=== PATIENT | male | born 1935 | race Two or more races ===

== ENCOUNTER → 2016-12-12 | Day surgery (SDC) | payer MEDICARE ==
[~2016-12-12] MED LIST: GLYCOPYRROLATE 1 MG/5 ML VIAL. ONE; IV RINGERS SOLUTION,LACTATED 1,000 ML IV ONE; LABETALOL 100 MG/20 ML VIAL. IV ONE; LIDOCAINE 2% PF Vial for OR 5 ML VIAL. ONE; PROPOFOL 40 ML IV ONE; hydrALAZINE 20 MG/ML VIAL. ONE
--- NOTE | 2016-12-15 14:21 | PATHOLOGY ---
PATHOLOGY REPORT * * * * * * * * FINAL DIAGNOSIS: A. Colon biopsy, cecal mass: - Villous adenoma. B. Colorectal biopsy, rectal polyp: - Hyperplastic polyp. COMMENT: Sections of the cecal mass biopsy reveal multiple fragments of villous adenoma. There is no evidence of malignancy this biopsy. If there is a strong clinical suspicion of malignancy, additional biopsies may be helpful. Sections of the rectal biopsy reveal a hyperplastic polyp. There are no adenomatous changes or evidence of malignancy. (JPM:mml; 12/15/2016) REPORT ELECTRONICALLY SIGNED BY: Jonathan Cameron M.D. DATE/TIME: 12/15/2016 14:20 * * * * * * * * GROSS PATHOLOGY: A. Received in formalin labeled "Jorge King, mass at cecum," are 7 segments of vasquez soft tissue measuring 1.8 x 1.5 x 0.2 cm in aggregate dimensions and ranging from 0.2 to 0.8 cm in maximum dimension. The specimen is submitted entirely in cassette A1. B. Received in formalin labeled "Jorge King, rectal polyp," is a segment of vasquez soft tissue measuring 0.8 cm in maximum dimension. The specimen is submitted entirely in cassette B1. (TSD; 12/12/2016) INITIAL CPT CODE(S): A; 07480 B; 70465 Professional services performed by [facility] [place] [address] Technical services performed by [facility] at [address] [place] [address] [address] [address]. SPECIMEN(S) RECEIVED: A.Mass at cecum B.Rectal polyp CLINICAL HISTORY: Abnormal findings on diagnostic imaging of abdomen PATIENT: JORGE KING /AGE: 11 1935 (Age: 80) PATIENT #: [id number] ALT CASE #: SPECIMEN COLLECTION DATE: 12/12/2016 SPECIMEN RECEIVED DATE: 12/12/2016 [facility] [place] [address] - PHONE: [phone] * * * END OF REPORT * * *
== END | disposition home or self-care (01) ==
LOC: SURG 07:52
PROVIDERS: ATTEND Surgery
DX: C18.0 Malignant neoplasm of cecum (principal); K57.30 Diverticulosis of large intestine without perforation or abscess without bleeding; I10 Essential (primary) hypertension; E11.9 Type 2 diabetes mellitus without complications; Z98.890 Other specified postprocedural states; Z87.891 Personal history of nicotine dependence
CPT/HCPCS: 45380; 82947; 88305; J0360; J2704; J3490; J7120; J2001

== ENCOUNTER 2017-02-05 11:10 | Inpatient (IN) | payer MEDICARE ==
[~2017-02-05] VITALS: Ht 175.3 cm; Wt 66.4 kg
[2017-02-05] VITALS (7 sets, daily range): BP systolic 123–155; BP diastolic 56–72
--- NOTE | 2017-02-05 11:47 | EKG ---
[address] [address] Test Date: 2017-02-05 Test Time: 11:45:08 Pat Name: ALIDA KING Department: Room: Gender: M [employer] Associate: ROSY : 1935 Requested By: HENRIQUE ORNELAS Order Number: [id number] Reading MD: Measurements Intervals Cecilia Rate: 89 P: 0 MO: 152 QRS: 27 QRSD: 106 T: 51 QT: 372 QTc: 459 Interpretive Statements SINUS RHYTHM NO SPECIFIC ECG ABNORMALITIES RI6.01 Unconfirmed report No previous ECG available for comparison
--- NOTE | 2017-02-05 11:53 | RAD ---
Portable chest, 02/05/2017: History: Shortness of breath The heart size is normal. There is calcific plaquing of the aorta. The pulmonary vascularity is normal. There are mild patchy bilateral pulmonary infiltrates, most prominent in the lung bases. There is a suggestion of underlying cavitation within the left basilar infiltrate. No pleural fluid is seen. IMPRESSION: Patchy bilateral pulmonary infiltrates suggesting pneumonia. Possible underlying cavitation in the left base could be due to an abscess or septic emboli.
[2017-02-05 11:58] LABS: BASO % 0 % (0-3); EOS % 0 % (0-3); HEMATOCRIT 32.8 % (39.0-53.0); LYMPH # 0.2 x10^3/uL (1.0-4.8); LYMPH % 2 % (24-48); MEAN CORPUSCULAR HEMOGLOBIN 30 pg (25-35); MEAN CORPUSCULAR HGB CONC 34 g/dL (31-37); MEAN CORPUSCULAR VOLUME 88 fL (79-100); MONO # 0.4 x10^3/uL (0.0-1.1); MONO % 4 % (0-9); NEUT # 10.3 x10^3uL (1.8-7.7); NEUT % 94 % (31-73); PLATELET COUNT 303 x10^3/uL (140-400); RED BLOOD COUNT 3.74 x10^6/uL (4.30-5.70); RED CELL DISTRIBUTION WIDTH 14.6 % (11.5-14.5); WHITE BLOOD COUNT 10.9 x10^3/uL (4.0-11.0)
[2017-02-05] MEDS ORDERED: IV NORMAL SALINE 50ML 50 ML ONE (12:06)
[2017-02-05] MEDS ORDERED: cefTRIAXone SODIUM 1 GM VIAL IV ONE (12:06)
[2017-02-05 12:12] LABS: BGAS PH 7.46 (7.35-7.46)
[2017-02-05] MEDS ORDERED: cefTRIAXone IV Push 1 GM VIAL. IVP SCH (12:15)
[2017-02-05] MEDS ORDERED: cefTRIAXone IV Push 1 GM VIAL. IVP ONE (12:15)
[2017-02-05 12:16] LABS: CALCIUM 9.3 mg/dL (8.5-10.1); CREATININE 1.9 mg/dL (0.7-1.3); GFR 34.1; POTASSIUM 3.6 mmol/L (3.5-5.1)
--- NOTE | 2017-02-05 12:56 | PHYS DOC ---
Past History Past Medical History: A-Fib, Diabetes, Hypertension Past Surgical History: Other Alcohol Use: None Drug Use: None Adult General Chief Complaint Chief Complaint: SHORTNESS OF BREATH HPI HPI Patient is a 81 year old M who presents with cough and shortness of breath over the past 2-3 days with gradual worsening. He denies fevers but feels that he has had chills. He feels that his symptoms are worse with activity and improved with rest. He has no other associated symptoms at this time. He has no other exacerbating or alleviating factors Review of Systems Review of Systems Constitutional: Denies fever Eyes: Denies change in visual acuity, redness, or eye pain [] HENT: nasal congestion Respiratory: Negative except for history of present illness Cardiovascular: No additional information not addressed in HPI [] GI: Denies abdominal pain, nausea, vomiting, bloody stools or diarrhea [] : Denies dysuria or hematuria [] Musculoskeletal: Denies back pain or joint pain [] Integument: Denies rash or skin lesions [] Neurologic: Denies headache, focal weakness or sensory changes [] Endocrine: Denies polyuria or polydipsia [] All other systems were reviewed and found to be within normal limits, except as documented in this note. Family History Family History No pertinent family medical history reported Current Medications Current Medications Current Medications Medications (Trade) Dose Ordered Sig/Roney Start Time Stop Time Status Last Admin Dose Admin Ceftriaxone Sodium 1 gm/ Sodium Chloride 50 ml @ 100 mls/hr 1X ONCE 02/05/17 12:00 02/05/17 12:08 DC Ceftriaxone Sodium (Rocephin) 1 gm 1X ONCE 02/05/17 12:15 02/05/17 12:16 DC 02/05/17 12:22 1 GM Sodium Chloride 50 ml @ As Directed STK-MED ONCE 02/05/17 12:06 02/05/17 12:07 DC Allergies Allergies Allergies Coded Allergies Type Severity Reaction Last Updated Verified lisinopril Allergy Intermediate 02/05/17 Yes Physical Exam Physical Exam Constitutional: Well developed, well nourished, mild increased work of breathing , ill-appearing HENT: Normocephalic, atraumatic, mild nasal congestion bilaterally Eyes: EOMI, conjunctiva normal, no discharge. [] Neck: Normal range of motion, no tenderness, supple, no stridor. [] Cardiovascular:Heart rate regular rhythm, Lungs & Thorax: Moderate diminished breath sounds bilaterally with moderate rhonchi bilaterally, mild increased work of breathing, 2 L nasal cannula for supplemental oxygen Abdomen: Bowel sounds normal, soft, no tenderness, no masses, no pulsatile masses. [] Skin: Warm, dry, no erythema, no rash. [] Back: No tenderness, no CVA tenderness. [] Extremities: No tenderness, no cyanosis, no clubbing, ROM intact, no edema. [] Neurologic: Alert and oriented X 3, normal motor function, normal sensory function, no focal deficits noted. [] Psychologic: Affect normal, judgement normal, mood normal. [] Current Patient Data Vital Signs Vital Signs Date Time Temp Pulse Resp B/P (MAP) Pulse Ox O2 Delivery O2 Flow Rate FiO2 02/05/17 11:10 98.3 86 24 90 Nasal Cannula 2.0 Lab Results Laboratory Tests Test 02/05/17 11:21 02/05/17 11:40 Blood pH 7.46 (7.35-7.46) Blood Gas PCO2 29 mmHg (35-46) L Blood Gas PO2 52 mmHg (71-100) L Blood Gas HCO3 21 mmol/L (21-28) Arterial Bld O2 Saturation (Calc) 89 % (92-99) L FiO2 21 % White Blood Count 10.9 x10^3/uL (4.0-11.0) Red Blood Count 3.74 x10^6/uL (4.30-5.70) L Hemoglobin 11.0 g/dL (13.0-17.5) L Hematocrit 32.8 % (39.0-53.0) L Mean Corpuscular Volume 88 fL (79-100) Mean Corpuscular Hemoglobin 30 pg (25-35) Mean Corpuscular Hemoglobin Concent 34 g/dL (31-37) Red Cell Distribution Width 14.6 % (11.5-14.5) H Platelet Count 303 x10^3/uL (140-400) Neutrophils (%) (Auto) 94 % (31-73) H Lymphocytes (%) (Auto) 2 % (24-48) L Monocytes (%) (Auto) 4 % (0-9) Eosinophils (%) (Auto) 0 % (0-3) Basophils (%) (Auto) 0 % (0-3) Neutrophils # (Auto) 10.3 x10^3uL (1.8-7.7) H Lymphocytes # (Auto) 0.2 x10^3/uL (1.0-4.8) L Monocytes # (Auto) 0.4 x10^3/uL (0.0-1.1) Eosinophils # (Auto) 0.0 x10^3/uL (0.0-0.7) Basophils # (Auto) 0.0 x10^3/uL (0.0-0.2) D-Dimer (Bonita) 12.44 mg/L (0.00-0.50) H Sodium Level 135 mmol/L (136-145) L Potassium Level 3.6 mmol/L (3.5-5.1) Chloride Level 101 mmol/L (98-107) Carbon Dioxide Level 23 mmol/L (21-32) Anion Gap 11 (6-14) Blood Urea Nitrogen 52 mg/dL (8-26) H Creatinine 1.9 mg/dL (0.7-1.3) H Estimated GFR (Cockcroft-Gault) 34.1 Glucose Level 273 mg/dL (70-99) H Calcium Level 9.3 mg/dL (8.5-10.1) XZ-Vwc-O-Type Natriuretic Peptide 538 pg/mL (0-449) H EKG EKG NSR, No QRS interval abnormalities, No ST changes - [place] Radiology/Procedures Radiology/Procedures CXR - Patchy infiltrate likely pneumonia Course & Med Decision Making Course & Med Decision Making Pertinent Labs and Imaging studies reviewed. (See chart for details) Plan for VQ scan as an inpatient. Clinically his symptoms are most consistent with pneumonia. Dragon Disclaimer Dragon Disclaimer This electronic medical record was generated, in whole or in part, using a voice recognition dictation system. Departure Departure: Impression: Primary Impression: Pneumonia Additional Impressions: Respiratory failure Acute renal failure Elevated d-dimer Disposition: ADMITTED INPATIENT Condition: STABLE Referrals: GIL MELO MD (PCP) Problem Qualifiers Primary Impression: Pneumonia Pneumonia type: due to unspecified organism Laterality: bilateral Lung location: unspecified part of lung Qualified Codes: J18.9 - Pneumonia, unspecified organism Additional Impressions: Respiratory failure Chronicity: acute Respiratory failure complication: hypoxia Qualified Codes : J96.01 - Acute respiratory failure with hypoxia Acute renal failure Acute renal failure type: unspecified Qualified Codes: N17.9 - Acute kidney failure, unspecified HENRIQUE ORNELAS MD Feb 05, 2017 12:56
[2017-02-05] MEDS ORDERED: ENOXAPARIN ** NOTE DOSE ** SYRINGE SQ ONE (13:45)
[2017-02-05 15:15] LABS: BILIRUBIN,URINE NEG (NEG); CLARITY,URINE HAZY; COLOR,URINE AMBER; GLUCOSE,URINE 500 mg/dL (NEG)
[2017-02-05 15:16] LABS: AMORPHOUS SEDIMENT,UR PRESENT /HPF; BACTERIA,URINE FEW /HPF (0-FEW); GRANULAR CASTS,URINE MOD /HPF; HYALINE CASTS, URINE MANY /HPF; NITRITE,URINE NEG (NEG); RBC,URINE OCC /HPF (0-2); SQUAMOUS EPITHELIAL CELL,UR FEW /LPF; UROBILINOGEN,URINE 4 mg/dL (0.2 mg/dL); WBC,URINE OCC /HPF (0-4)
--- NOTE | 2017-02-05 15:21 | RAD ---
CT study chest without contrast History: Shortness of breath. Abnormal chest x-ray Technique: Noncontrast helical CT scanning of the chest was performed. Without contrast, the sensitivity to detect organ pathology is decreased. PQRS Compliance Statement: One or more of the following individualized dose reduction techniques were utilized for this examination: 1. Automated exposure control 2. Adjustment of the mA and/or kV according to patient size 3. Use of iterative reconstruction technique Comparison: None available. Findings: Mediastinal lymphadenopathy is seen. There is an anterior mediastinal lymph node measuring 14 mm. A precarinal lymph node is seen measuring 17 mm. Additional aortopulmonary window small lymph nodes are seen. Calcified subcarinal lymph nodes are seen due to old granulomatous disease. No focal aneurysmal dilatation of the thoracic aorta is seen. Calcified atheromatous disease of the coronary arteries is seen. The heart size is not enlarged. No adrenal mass is evident. There are nodular lung infiltrates within the left upper lobe. More consolidative lung infiltrates are seen within the left lower lobe and right lower lobe. Interstitial nodular lung infiltrates are seen within the right upper lobe. Bilateral bronchitis and bronchiectasis is seen. The proximal bronchial tree is patent. No osteolytic process is seen. IMPRESSION: Bronchiectasis and bronchitis. Bilateral lung infiltrates as discussed above. This may represent infectious or inflammatory disease or aspiration pneumonitis. Neoplastic disease has not been excluded and therefore recommend a follow-up chest CT after completion of therapy especially given the spiculated appearance of some of the nodular infiltrates within the left upper lobe. Associated reactive mediastinal lymphadenopathy. Calcified atheromatous disease of the coronary arteries
[2017-02-05] MEDS ORDERED: VANCOMYCIN PER PHARMACY MC PRN (15:45)
[2017-02-05] MEDS ORDERED: VANCOMYCIN 1.75 GM in IV NORMAL SALINE 500ML 500 ML IV ONE (16:00)
[2017-02-05] MEDS: IV NORMAL SALINE 1,000ML 1,000 ML IV SCH (17:53)
[2017-02-05] MEDS: PIPERACILLIN/TAZOBACTAM 3.375 GM in IV NORMAL SALINE 50ML 50 ML IV SCH ×2 (17:53→23:57)
[2017-02-05] MEDS ORDERED: PIPERACILLIN/TAZO IV Push 3.375 GM VIAL. IVP SCH (18:00)
[2017-02-05] MEDS ORDERED: PIPERACILLIN/TAZOBACTAM 4.5 GM in IV NORMAL SALINE 50ML 50 ML IV SCH (18:00)
[2017-02-05 19:33] LABS: INFLUENZA A PATIENT NEGATIVE (NEGATIVE); INFLUENZA B PATIENT NEGATIVE (NEGATIVE)
[2017-02-05] MEDS ORDERED: IPRATRPIUM/ALBUTEROL 0.5/2.5MG 3 ML NEBU. ONE (20:27)
[2017-02-05] MEDS: IPRATRPIUM/ALBUTEROL 0.5/2.5MG 3 ML NEBU. NEB SCH ×2 (21:00→21:27)
[2017-02-05] MEDS: LACTOBACILLUS RHAMNOSUS GG 1 CAPSULE. PO SCH (21:58)
[2017-02-05] MEDS: ENOXAPARIN ** NOTE DOSE ** SYRINGE SQ SCH (21:59)
[2017-02-06] VITALS (12 sets, daily range): BP systolic 125–158; BP diastolic 56–144
[2017-02-06] MEDS: IV NORMAL SALINE 1,000ML 1,000 ML IV SCH (03:51)
[2017-02-06] MEDS ORDERED: cholecaciferol PO (04:48)
[2017-02-06] MEDS ORDERED: ACET325T9 PO (04:48)
[2017-02-06] MEDS ORDERED: DOCU100C28 PO (04:48)
[2017-02-06] MEDS ORDERED: GLIP10TA13 PO (04:48)
[2017-02-06] MEDS ORDERED: CLON0.1T PO (04:48)
[2017-02-06] MEDS ORDERED: GUAIFENESIN PO (04:48)
[2017-02-06] MEDS ORDERED: AMLO5TAB2 PO (04:48)
[2017-02-06] MEDS ORDERED: POTA500T PO (04:48)
[2017-02-06] MEDS ORDERED: LINA5TAB4 PO (04:48)
[2017-02-06] MEDS ORDERED: METO50TA6 PO (04:48)
[2017-02-06] MEDS ORDERED: LOSA100T6 PO (04:48)
[2017-02-06] MEDS ORDERED: OXYC-323 PO ×2 (04:48)
[2017-02-06] MEDS: IPRATRPIUM/ALBUTEROL 0.5/2.5MG 3 ML NEBU. NEB SCH ×2 (06:01→12:10)
[2017-02-06] MEDS: PIPERACILLIN/TAZOBACTAM 3.375 GM in IV NORMAL SALINE 50ML 50 ML IV SCH ×2 (06:02→11:41)
[2017-02-06 06:30] LABS: BASO % 0 % (0-3); EOS % 0 % (0-3); HEMATOCRIT 29.2 % (39.0-53.0); HEMOGLOBIN 9.9 g/dL (13.0-17.5); LYMPH # 0.5 x10^3/uL (1.0-4.8); LYMPH % 7 % (24-48); MEAN CORPUSCULAR HEMOGLOBIN 30 pg (25-35); MEAN CORPUSCULAR HGB CONC 34 g/dL (31-37); MEAN CORPUSCULAR VOLUME 89 fL (79-100); MONO # 0.3 x10^3/uL (0.0-1.1); MONO % 5 % (0-9); NEUT # 5.9 x10^3uL (1.8-7.7); NEUT % 88 % (31-73); PLATELET COUNT 252 x10^3/uL (140-400); RED BLOOD COUNT 3.29 x10^6/uL (4.30-5.70); RED CELL DISTRIBUTION WIDTH 14.7 % (11.5-14.5); WHITE BLOOD COUNT 6.8 x10^3/uL (4.0-11.0)
[2017-02-06 06:42] LABS: ALBUMIN 0.9 g/dL (3.4-5.0); ALBUMIN/GLOBULIN RATIO 0.2 (1.0-1.7); CALCIUM 8.7 mg/dL (8.5-10.1); CREATININE 1.7 mg/dL (0.7-1.3); GFR 38.8; MAGNESIUM 2.2 mg/dL (1.8-2.4); POTASSIUM 3.4 mmol/L (3.5-5.1); TOTAL BILIRUBIN 0.7 mg/dL (0.2-1.0); TOTAL PROTEIN 5.5 g/dL (6.4-8.2)
[2017-02-06] MEDS: ENOXAPARIN ** NOTE DOSE ** SYRINGE SQ SCH (08:43)
[2017-02-06] MEDS: LACTOBACILLUS RHAMNOSUS GG 1 CAPSULE. PO SCH (08:43)
[2017-02-06] MEDS ORDERED: glipiZIDE 10 MG TABLET PO SCH (09:30)
[2017-02-06] MEDS ORDERED: LINAGLIPTIN 5 MG TABLET PO SCH (09:30)
[2017-02-06] MEDS ORDERED: guaiFENesin 300 MG/15 ML LIQUID PO PRN (09:45)
--- NOTE | 2017-02-06 10:06 | HP ---
ADMIT DATE: 02/05/2017 REASON FOR ADMISSION: Weakness, shortness of breath, pneumonia. HISTORY OF PRESENT ILLNESS: This is an 81-year-old gentleman who was transported to the ER from [facility]. He was admitted to [facility] on 01/29/2017 after going some type of laparoscopic colon surgery for what he states is a benign tumor and was at [facility] for rehabilitation. He states he was there for 3 days, then he fell, became short of breath soon after and very weak with a cough, chills and general malaise. PAST MEDICAL HISTORY: Significant for hypertension, weakness, type 2 diabetes, polyneuropathy, hypertension, chronic atrial fibrillation. PAST SURGICAL HISTORY: Recent laparoscopic surgery. REVIEW OF SYSTEMS: On Seam[employer] Receipts reveals a colonoscopy in December for a possible cecal mass, but this was showing a hyperplastic polyp. ALLERGIES: LISINOPRIL. CURRENT MEDICATIONS: Amlodipine 5 mg a day, cholecalciferol 2000 units a day, clonidine 0.1 mg b.i.d., Colace 100 mg b.i.d., glipizide 10 mg daily, guaifenesin as needed, linagliptin (Tradjenta) 5 mg by mouth once a day, losartan 100 mg daily, metoprolol 50 mg daily, oxycodone/acetaminophen 5/325 one to two tabs q. 4 hours, potassium phosphate 500 mg b.i.d., Tylenol 650 q. 6 hours as needed. FAMILY HISTORY: Sister had breast cancer. SOCIAL HISTORY: The patient states he was previously residing at home. He was a smoker, quit in 1997, has not had problems with alcohol. 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 REVIEW OF SYSTEMS: Positive for cough, chills and weakness and recent fall. PHYSICAL EXAMINATION: VITAL SIGNS: Blood pressure is 131/56, pulse 90, respirations 20, pulse ox is 97% on 4 liters. He was on admission 84% on room air and 86% on 2 liters. Height 69 inches, weight 146.31 pounds. GENERAL: Debilitated, 81-year-old in no acute distress currently. The patient is resting comfortably. HEENT: Her eyes are clear. Her nose was patent. Throat was clear. He does have a cough. NECK: Supple, without adenopathy. LUNGS: With diffuse rhonchi and wheezes. CARDIOVASCULAR: Regular rhythm and rate. ABDOMEN: Mildly tender. Noted Steri-Strips from surgery. EXTREMITIES: Without edema. LABORATORY DATA: White count 10.9 without a left shift. ABG, pO2 is 52, CO2 is 29. D-dimer 12.44. Chemistry: BUN 52, creatinine 1.9, albumin 0.9, potassium 3.4. Chest x-ray and CAT scan positive for diffuse bilateral pneumonia. ASSESSMENT: 1. Bilateral pneumonia. 2. Elevated D-dimer, questionable etiology. We will have to still rule out PE. 3. Hypokalemia. 4. Weakness. 5. Acute hypoxic respiratory failure. 6. Diabetes. 7. Hypertension. We will hold meds for now. PLAN: Antibiotics, oxygen. PT, OT, PE prophylaxis until ruled out. CRISTOFER ADAMS DO DR: STEFFI/cynthia JOB#: [id number] / [id number]
[2017-02-06] MEDS ORDERED: oxyCODONE/APAP 5/325 1 TAB TABLET PO PRN (12:00)
[2017-02-06] MEDS ORDERED: ACETAMINOPHEN 325 MG TABLET PO PRN (12:00)
[2017-02-06] MEDS ORDERED: IOHEXOL 300 MG/ML 75 ML VIAL. IV ONE (14:00)
[2017-02-06] MEDS ORDERED: METO50TA29 PO (14:04)
--- NOTE | 2017-02-06 16:09 | RAD ---
CTA of the chest with contrast, 02/06/2017: History: Elevated d-dimer, cough, congestion Multidetector CT imaging was performed following IV bolus injection of iodinated contrast material. Due to patient motion during the injection process the bolus timing was off, producing inadequate opacification of the pulmonary arteries. No obvious filling defect is seen in the main pulmonary arteries. The degree of opacification of the lobar and smaller pulmonary disease is an adequate to exclude pulmonary emboli. The study could not be repeated at this time due to the patient's mild renal insufficiency. There is mild calcific plaquing of the thoracic aorta without evidence of aneurysm or dissection. Moderate coronary artery calcifications are present. The heart is of normal size. There are calcified mediastinal lymph nodes. Additional mediastinal lymph nodes of borderline size are again noted as described on yesterday's CT study. Areas of bronchiectasis and moderate patchy pulmonary infiltrates described on yesterday's study are again noted and are unchanged. There appears to be a component of fibrosis and probable peripheral honeycombing in the lungs. There is no evidence of pneumothorax. There appears to be a trace amount of pleural fluid on the right. A portion of the upper abdomen was included on this study. There is an abnormal collection of fluid and gas extending from the right subdiaphragmatic region along the lateral aspect of the right lobe of the liver into the right paracolic gutter. Its inferior extent is not completely included on this exam. This process has a loculated appearance raising the possibility of an abscess. Reportedly the patient underwent some sort of colon surgery several weeks go, supporting the possibility of a postoperative abscess. There is slightly increased density in the periphery of the liver adjacent to this abnormal fluid collection. This likely reflects increased postcontrast enhancement on a reactive basis. Subcapsular hemorrhage is less likely. IMPRESSION: 1. Inadequate visualization of the pulmonary arteries due to technical factors. 2. Bronchiectasis, fibrosis and moderate patchy bilateral pulmonary infiltrates suggesting pneumonia, unchanged since yesterday's study. 3. Abnormal subdiaphragmatic collection of gas and air extending inferiorly along the right lobe liver into the right paracolic gutter. Postoperative abscess is suspected. Note: The findings were called to the patient's nurse on the floor at 4:05 PM on 02/06/2017. PQRS Compliance Statement: One or more of the following individualized dose reduction techniques were utilized for this examination: 1. Automated exposure control 2. Adjustment of the mA and/or kV according to patient size 3. Use of iterative reconstruction technique
[2017-02-06] MEDS ORDERED: VANCOMYCIN 1 GM in IV NORMAL SALINE 250ML 250 ML IV SCH (18:00)
[2017-02-06] MEDS ORDERED: POTASSIUM PHOSPHATE,MONOBASIC 500 MG TABLET. PO SCH (21:00)
[2017-02-06] MEDS ORDERED: DOCUSATE SODIUM 100 MG CAPSULE PO SCH (21:00)
[2017-02-07] MEDS ORDERED: LOSARTAN 50 MG TABLET. PO SCH (09:00)
[2017-02-07] MEDS ORDERED: METOPROLOL SUCC 24HR ER 50 MG TAB.ER.24H. PO SCH (09:00)
[2017-02-07] MEDS ORDERED: CHOLECALCIFEROL (VITAMIN D3) 1,000 UNIT TABLET PO SCH (09:00)
== END 2017-02-06 17:45 | disposition short-term general hospital (02) | DRG 682 ==
LOC: ER 11:10 → EEVIPCON 15:05 → ICU 15:05 → 1 SOUTH 02-06 15:24
PROVIDERS: ADMIT Family Medicine; ATTEND Family Medicine
DX: N17.9 Acute kidney failure, unspecified (principal); J96.01 Acute respiratory failure with hypoxia; J18.9 Pneumonia, unspecified organism; I48.2 Chronic atrial fibrillation; E11.42 Type 2 diabetes mellitus with diabetic polyneuropathy; E87.6 Hypokalemia; I10 Essential (primary) hypertension; R79.1 Abnormal coagulation profile; Z80.3 Family history of malignant neoplasm of breast; Z87.891 Personal history of nicotine dependence; Z88.8 Allergy status to other drugs, medicaments and biological substances; Z79.4 Long term (current) use of insulin
CPT/HCPCS: 36415; 36600; 71010; 71250; 71275; 80048; 80053; 81001; 82803; 82947; 83735; 83880; 85025; 85379; 87040; 87205; 87641; 87804; 93005; 94640; 96372; 96374; J0696; J1650; J2543; J3370; J7040; J7620; Q9967; 99285-25; J7030